=== PATIENT | male | born 1930 | race Caucasian/White ===

== ENCOUNTER → 2017-01-09 | Outpatient (CLI) | payer OTHER ==
[~2017-01-09] VITALS: Ht 177.8 cm; Wt 65.8 kg
[~2017-01-09] MED LIST: ASPIR 8181 MG PO; CARTIA XT120 M1 PO; COLACE100 MG PO; COUMADIN 2 MG TA2 M1 PO; DOXYCYCLINE 10100 MG PO; ELIQUIS5 MG; ELIQUIS5 MG PO; FLOMAX0.4 MG PO; FLOVENT HFA 2220 MCG INH; HYDROCODONE-AP1 EAC6 PO; LEVAQUIN 500 M500 M4 PO; MUCINEX TA600 MG/TA2 PO; NYSTATIN 1100000 U/M PO; OMEPRAZOLE20 M1 PO; PACERONE 200 M200 M1 PO; PRILOSEC20 MG PO; PROBIOTIC1 EAC1 PO; PROTONIX 20 MG20 M1 PO; PROTONIX40 M1 PO; SINGULAIR 10 MG10 M1 PO; TOPROL XL25 MG PO; XANAX 0.5 MG0.5 MG PO; XARELTO10 M1 PO; ZIOPTAN 0.00151 EACH OPHTHALMIC; ZOCOR20 MG PO; ZOFRAN ODT4 MG PO; ZYRTEC10 MG PO
--- NOTE | ~2017-01-09 | S ---
[facility] [place] [address] SURGICAL PATH RPT PROCEDURE Name: YANIRA CAPPS [facility] [id number] Admission: 01/09/17 Date of : 30 Discharge: Report #: [id number] Path Case #: [id number] PATHOLOGY REPORT COLLECTION DATE: 01/09/2017 RECEIVED DATE: 01/09/2017 SUBMITTING PHYS: Dr. Eric Uribe OTHER PHYS: SPECIMEN(S) RECEIVED: A.Distal esophagus * * * * * * * * * * * * FINAL DIAGNOSIS: Gastroesophageal mucosa, distal esophagus, endoscopic biopsy: - Squamous mucosa with mild esophagitis. - Gastric cardia-type mucosa with mild chronic inflammation. - Negative for intestinal metaplasia or dysplasia. COMMENT: Co-review: Dr. Savannah Zamora (IUV:mgr; 01/12/2017) PATHOLOGIST: Shasta Toscano M.D. REPORT ELECTRONICALLY SIGNED BY: Shasta Toscano M.D. DATE/TIME: 01/12/2017 17:30 * * * * * * * * * * * * GROSS PATHOLOGY: Received in formalin labeled "Yanira Capps, biopsy of distal esophagus," are five segments of carrillo soft tissue measuring 1.0 x 0.9 x 0.1 cm in aggregate dimensions and ranging from 0.2 to 0.6 cm in maximum dimension. The specimen is submitted entirely in cassette A1. (CAA; 01/10/2017) CLINICAL HISTORY: History of Martínez's esophagus, Martínez's, small hiatal hernia, R/O dysplasia INITIAL CPT CODE(S): A; 10421 Professional services performed by [facility] at [facility] [address], [place] [address] [facility] [address] [place] [address] SURGICAL PATH RPT PROCEDURE Name: YANIRA CAPPS Room #: REG RICARDO Anderson#: [id number] Admission: 01/09/17 Date of : 30 Discharge: Report #: [id number] Path Case #: [id number] [facility] at [address] [place] [address], [place] [address]. [facility] [address] [place] [address] PHONE: [phone] DIRECTOR: Martin Lindquist M.D. * * * END OF REPORT * * *
--- NOTE | ~2017-01-09 | P ---
[facility] [place] [address] PROCEDURE REPORT Name: YANIRA POZO Aydee Room #: REG [facility]#: [id number] Admission: 01/09/17 Attend Phys: Eric Uribe MD Discharge: Date of : 30 Report #: [id number] THIS REPORT FOR: //name// CC: Eric Burnett MD BRIEF HISTORY: The patient is an 86-year-old male with a history of Martínez's esophagus for surveillance examination. PREOPERATIVE DIAGNOSIS: Martínez's esophagus. POSTOPERATIVE DIAGNOSES: 1. Short segment Martínez esophagus. 2. Small hiatus hernia. MEDICATIONS: Deep sedation with propofol per anesthesia. SPECIMEN: Biopsies of GE junction for Martínez. ESTIMATED BLOOD LOSS: 3 mL. PROCEDURE: EGD with biopsy. FINDINGS: Prior to propofol sedation, the procedure of upper endoscopy and biopsy discussed with the patient as well as potential risks and its complications. He indicates he understands and desires to proceed. DESCRIPTION OF PROCEDURE: With the patient in left lateral decubitus position, the Hoodsi video endoscope was inserted in the cervical esophagus under direct vision without difficulty. Examination of this organ through its entire length revealed normal esophageal mucosa down to the squamocolumnar junction. Squamocolumnar junction was identified and noted to be irregular and essentially there was a broad tongue of Martínez type mucosa. The mucosa was flat without ulcerations or mass lesions. The length of Martínez was no more than 2 cm and the irregular squamocolumnar junction involved less than one-third of the esophagus. In addition, intermittently, small hiatus hernia was seen. The mucosa within the hernia was within normal limits. Scope was advanced in the stomach, was examined on end view as well as retroflexed views. There was some erythema in the antrum, but no ulcers or erosions were seen. No retained solids or liquids are seen in the stomach. Upon retroflexion, the small hiatus hernia was seen. No other abnormalities were identified. The pylorus, duodenal bulb, and postoperative sweep were inspected and noted to be within normal limits. At that point, the scope was slowly withdrawn and careful circumferential views confirmed the above findings and the patient tolerated procedure well. As we withdrew the scope, multiple biopsies were obtained of Martínez mucosa. [address] [address] PROCEDURE REPORT Name: RONDARoblesYANIRA Aydee Room #: REG [facility] Justin#: [id number] Admission: 01/09/17 Attend Phys: Eric Uribe MD Discharge: Date of : 30 Report #: [id number] CONDITION OF THE PATIENT UPON DISCHARGE: Following procedure, the patient drowsy, aroused, conversant and will be discharged home when fully ambulatory. INSTRUCTIONS TO THE PATIENT AND FAMILY AT THE TIME OF DISCHARGE: Endoscopically he has a stable pattern of Martínez esophagus and the distal esophagus. We will follow up on pathology and make further recommendations. If there is no evidence, we will make followup recommendations. At this point in time, unless he has highly dysplastic mucosa, I do not see the need for further intervention or surveillance. He is to continue proton pump inhibitor and suggest omeprazole 20 mg once daily. I doubt that he needs twice daily omeprazole. He will return to the care of Dr. Fred Burnett and return to see me as needed. <ELECTRONICALLY SIGNED> By: Eric Uribe MD 01/10/17 0658 [id number] Eric Uribe MD /nt
== END | disposition home or self-care (01) ==
LOC: GI 08:04 → NUC 13:58
DX: K22.719 Barrett's esophagus with dysplasia, unspecified (principal); K21.9 Gastro-esophageal reflux disease without esophagitis; K44.9 Diaphragmatic hernia without obstruction or gangrene; I10 Essential (primary) hypertension; I48.91 Unspecified atrial fibrillation; E78.5 Hyperlipidemia, unspecified; E78.00 Pure hypercholesterolemia, unspecified; N40.0 Benign prostatic hyperplasia without lower urinary tract symptoms; Z85.46 Personal history of malignant neoplasm of prostate; Z98.41 Cataract extraction status, right eye; Z98.42 Cataract extraction status, left eye; Z96.1 Presence of intraocular lens; Z98.890 Other specified postprocedural states; Z79.82 Long term (current) use of aspirin; Z79.01 Long term (current) use of anticoagulants; Z79.899 Other long term (current) drug therapy
CPT/HCPCS: 62110; 62900

== ENCOUNTER 2017-11-02 14:57 | Emergency (ER) | payer OTHER ==
[~2017-11-02] VITALS: Ht 177.8 cm; Wt 65.8 kg
[2017-11-02 15:36] LABS: HEMATOCRIT 39.2 % (42.0-52.0); HEMOGLOBIN 13.1 gm/dL (14.0-18.0); MCH 33.1 pg (26.0-34.0); MCHC 33.5 g/dL (28.0-37.0); MCV 98.6 fL (80.0-100.0); RBC 3.98 mil/uL (4.50-6.00); RDW 13.4 % (10.5-14.5); WBC 4.2 thou/uL (4.0-11.0)
[2017-11-02 15:50] LABS: INR 2.4; PROTIME 23.8 Seconds (9.3-11.4)
[2017-11-02] MEDS ORDERED: KEFLEX500 M1 PO (17:55)
== END 2017-11-02 18:13 | disposition home or self-care (01) ==
LOC: ER 14:57
PROVIDERS: Emergency Medicine
DX: R04.0 Epistaxis (principal); E78.00 Pure hypercholesterolemia, unspecified; K21.9 Gastro-esophageal reflux disease without esophagitis; N40.0 Benign prostatic hyperplasia without lower urinary tract symptoms; I48.91 Unspecified atrial fibrillation; Z90.89 Acquired absence of other organs; Z85.46 Personal history of malignant neoplasm of prostate

== ENCOUNTER → 2019-04-27 | Outpatient (CLI) | payer OTHER ==
[~2019-04-27] MED LIST changes: +KEFLEX500 M1 PO
== END ==
LOC: RAD 11:58
DX: I51.7 Cardiomegaly (principal)

== ENCOUNTER → 2019-06-03 | Outpatient (CLI) | payer OTHER ==
[~2019-06-03] VITALS: Ht 180.3 cm; Wt 63.5 kg
[~2019-06-03] MED LIST changes: +COUMADIN 4 MG TA4 M1 PO; +MULTIVITAMINS1 EAC7 PO; +TRUSOPT OCUMETE10 ML OPHTHALMIC
[2019-06-03 08:36] LABS: INR 1.2; PROTIME 11.9 Seconds (9.3-11.4)
--- NOTE | 2019-06-04 11:04 | P ---
[facility] [place] [place] [address] PROCEDURE REPORT Name: YANIRA POZO Room #: REG [facility]#: [id number] Admission: 06/03/19 Attend Phys: Eric Uribe MD Discharge: Date of : 30 Report #: [id number] THIS REPORT FOR: //name// CC: Eric Burnett MD OUTPATIENT COLONOSCOPY REPORT BRIEF HISTORY: The patient is an 88-year-old male with a history of colon polyps and recent findings of Hemoccult-positive stools. PREOPERATIVE DIAGNOSIS: Hemoccult-positive stools. POSTOPERATIVE DIAGNOSES: 1. Moderate sigmoid diverticulosis coli. 2. Internal hemorrhoids. MEDICATIONS: Deep sedation with propofol per anesthesia. SPECIMEN: None. ESTIMATED BLOOD LOSS: None. PROCEDURE: Colonoscopy to cecum and terminal ileum. FINDINGS: Prior to propofol sedation, procedure of colonoscopy discussed with the patient as well as potential risks, benefits, and complications. He indicates he understands and desires to proceed. DESCRIPTION OF PROCEDURE: With the patient in left lateral decubitus position, digital examination was completed, which revealed no abnormalities. Subsequently, the Olympus video colonoscope was introduced in the rectum, advanced under direct vision to the cecum. Done with minimal difficulty. Cecum was identified by the ileocecal valve and the appendiceal orifice. I was able to visualize the distal segment of the terminal ileum, which was inspected and noted to be unremarkable. At that point, the scope was slowly withdrawn and careful circumferential views were obtained. There were some limitations of the prep in the proximal colon. However, with irrigation and suctioning, we were able to overall obtain a reasonably good prep. The mucosa within normal limits, normal vascular pattern, normal light reflex. No mucosal abnormalities were seen. Specifically, there was no evidence of bleeding lesions or AVMs were not seen. No neoplastic lesions were seen. However, in the sigmoid colon, there was moderate diverticular disease without endoscopic evidence of diverticulitis. Scope was withdrawn in the rectum, no abnormalities were seen. However, upon retroflexion, [id number] internal hemorrhoids were seen. There is no evidence of bleeding. Scope was withdrawn. The patient tolerated the procedure [facility] [address] [place] [address] PROCEDURE REPORT Name: SÁNCHEZYANIRA Aydee Room #: REG [facility] Justin#: [id number] Admission: 06/03/19 Attend Phys: Eric Uribe MD Discharge: Date of : 30 Report #: [id number] well. CONDITION OF THE PATIENT UPON DISCHARGE: Following procedure, the patient drowsy, aroused, conversant and will be discharged home when fully ambulatory. INSTRUCTIONS TO THE PATIENT AND FAMILY AT THE TIME OF DISCHARGE: No bleeding lesions identified on today's exam. It is possible the Hemoccult-positive stools could account for the hemorrhoids. Please see endoscopy report for additional details. If there is further concern about blood loss, small bowel capsule study at a later date may be a consideration. It is noted he did have one several years ago, which was nondiagnostic. We will have him resume his warfarin. He will return to care of Dr. Fred Burnett and return to see me as needed. Also, at this point in life, there is not likely to be much benefit from continued routine colonoscopy for screening purposes. <ELECTRONICALLY SIGNED> By: Eric Uribe MD 06/04/19 1104 [id number] 0926 Eric Uribe MD /nt
--- NOTE | 2019-06-04 11:04 | P ---
[facility] [place] [place] [address] PROCEDURE REPORT Name: YANIRA POZO Room #: REG [facility]#: [id number] Admission: 06/03/19 Attend Phys: Eric Uribe MD Discharge: Date of : 30 Report #: [id number] THIS REPORT FOR: //name// CC: Eric Burnett MD OUTPATIENT UPPER ENDOSCOPY BRIEF HISTORY: The patient is an 88-year-old male with a history of atrial fibrillation, on chronic Coumadin therapy, who was recently found to have Hemoccult positive stools. Last GI workup was about 4 years ago. PREOPERATIVE DIAGNOSIS: Hemoccult-positive stools. POSTOPERATIVE DIAGNOSES: 1. Diffuse gastritis. 2. Small hiatus hernia. 3. Short segment Martínez esophagus, broad tongue. 4. Exudative esophagitis consistent with candidiasis esophagitis. SPECIMENS: 1. Brushing of esophagus, rule out Negar. 2. Biopsies of Martínez's esophagus. ESTIMATED BLOOD LOSS: 3 mL. PROCEDURE: EGD with biopsy and brushing of esophagus. FINDINGS: Prior to propofol sedation, procedure of upper endoscopy was discussed with the patient as well as potential risks and its complications. He indicates he understands and desires to proceed. DESCRIPTION OF PROCEDURE: With the patient in left lateral decubitus position, the Olympus video endoscope was inserted in the cervical esophagus under direct vision without difficulty. Examination of this organ throughout its entire length revealed intact mucosa throughout the esophagus. No ulcers or erosions were seen. No bleeding lesions were seen. However, in the mid and distal esophagus, there was exudative process, most consistent with Negar esophagitis. Brushings were obtained. Examination of the distal esophagus revealed a broad tongue of Martínez's type mucosa, which has been seen previously. It was flat and it was examined with white light and narrow banded imaging. Random biopsies were obtained. The scope was advanced and a small hiatus hernia was encountered. The mucosa and hernia was unremarkable. Scope was advanced in the stomach, was examined on end view as well as retroflexed views. There was a pattern of diffuse gastritis that has been previously noted. Biopsies were not obtained today. There was no evidence of ulcers or bleeding [facility] [address] [place] [address] PROCEDURE REPORT Name: RONDARoblesYANIRA Aydee Room #: REG [facility].#: [id number] Admission: 06/03/19 Attend Phys: Eric Uribe MD Discharge: Date of : 30 Report #: [id number] lesions. Upon retroflexion, the hiatus hernia was seen. No mass lesions were seen. The pylorus, duodenal bulb and postbulbar duodenal sweep were inspected and noted to be unremarkable. At that point, the scope was slowly withdrawn and careful circumferential views confirmed the above findings. The patient tolerated the procedure well. CONDITION OF THE PATIENT UPON DISCHARGE: Following procedure, the patient drowsy and prepared for colonoscopy. INSTRUCTIONS TO THE PATIENT AND FAMILY AT THE TIME OF DISCHARGE: We will follow up on biopsies and brushing. He will likely need treatment for Negar esophagitis. A bleeding lesion was not seen. Proceed with colonoscopy at this time. Also, we will follow up on biopsies of the Martínez's mucosa. At this point in time, there is likely little benefit from routine surveillance of Martínez's esophagus. However, he should control his reflux disease. If there is evidence of dysplasia, we will discuss further with the patient. <ELECTRONICALLY SIGNED> By: Eric Uribe MD 06/04/19 1104 0838 0854 Eric Uribe MD /nt
--- NOTE | 2019-06-06 17:07 | PATH ---
[facility] [address] [place] [address] PATHOLOGY RPT PROCEDURE Name: BRIANNAJAQUELINEYANIRA Aydee Room #: REG RICARDO Anderson#: [id number] Admission: 06/03/19 Date of : 30 Discharge: Report #: [id number] Path Case #: [id number] [facility] Accession Number: [id number] . 01 Material submitted: . esophagus - BIOPSY OF DISTAL ESOPHAGUS - WHYTE TO R/O DYSPLASIA. Modifiers: distal . 01 Clinical history: . Pre-OP DX: Hemoccult positive stools, Whyte's esophagus Post-OP DX: Diverticulosis and hemorrhoids . 02 Diagnosis: Gastroesophageal mucosa, distal esophagus, endoscopic biopsy: - Detached squamous epithelial fragments associated with numerous fungal hyphae. - Intact gastroesophageal mucosa fragments showing mild esophagitis. - Negative for intestinal metaplasia or dysplasia. LBQ 06/06/2019 1259 Local . 02 Comment: The detached squamous epithelial fragments are associated with numerous fungal hyphal elements as well as fibrinopurulent debris. The intact fragments are devoid of any acute inflammatory changes. Findings may be suggestive of Negar esophagitis. Please correlate clinically and follow-up as indicated. (IUV/db; 06/06/2019) . 02 Electronically signed: . Shasta Toscano MD, Pathologist NPI- [id number] . 01 Gross description: . Received in formalin labeled "Yanira Capps BX of distal esophagus to rule out dysplasia," are 5 segments of carrillo soft tissue measuring 1.0 x 0.6 x 0.2 cm in aggregate dimensions and ranging from 0.1 to 0.5 cm in maximum dimension. The specimen is submitted entirely in cassette A1. Due to the minute nature of some of the specimens, they may not survive processing. (TSD; 06/03/2019) TOB/TOB 06/03/2019 1928 Local . 02 Pathologist provided ICD-10: K20.9 . 02 CPT . 826721 Specimen Comment: Report sent to / [place] [address] PATHOLOGY RPT PROCEDURE Name: YANIRA CAPPS Room #: REG [facility] Justin#: [id number] Admission: 06/03/19 Date of : 30 Discharge: Report #: [id number] Path Case #: [id number] Performed at: 01 [facility] Iliana Oakley [address], [place], [place] [id number] MD Adam Lea MD Phone: [phone] Performed at: [address] [id number] MD Shasta Toscano MD Phone: [phone]
== END | disposition home or self-care (01) ==
LOC: GI 07:29
PROVIDERS: Specialist
DX: R19.5 Other fecal abnormalities (principal); Z86.010 Personal history of colon polyps; K57.30 Diverticulosis of large intestine without perforation or abscess without bleeding; K64.8 Other hemorrhoids; K29.70 Gastritis, unspecified, without bleeding; K20.9 Esophagitis, unspecified; K22.8 Other specified diseases of esophagus; K44.9 Diaphragmatic hernia without obstruction or gangrene; I48.91 Unspecified atrial fibrillation; Z98.890 Other specified postprocedural states; Z79.899 Other long term (current) drug therapy; Z79.01 Long term (current) use of anticoagulants
CPT/HCPCS: 62110; 62900

== ENCOUNTER → 2019-06-14 | Outpatient (CLI) | payer OTHER | LOC: SJCVC 10:30 | DX: Z51.81 Encounter for therapeutic drug level monitoring (principal); I48.91 Unspecified atrial fibrillation; Z79.01 Long term (current) use of anticoagulants ==

== ENCOUNTER → 2019-06-15 | Outpatient (CLI) | payer OTHER | LOC: SJCVC 13:00 | DX: I48.0 Paroxysmal atrial fibrillation (principal); R94.31 Abnormal electrocardiogram [ECG] [EKG]; I42.8 Other cardiomyopathies; I10 Essential (primary) hypertension; E78.00 Pure hypercholesterolemia, unspecified; Z79.01 Long term (current) use of anticoagulants; Z79.899 Other long term (current) drug therapy; Z82.49 Family history of ischemic heart disease and other diseases of the circulatory system ==

== ENCOUNTER → 2019-06-21 | Outpatient (CLI) | payer OTHER | LOC: SJCVC 10:23 | DX: Z51.81 Encounter for therapeutic drug level monitoring (principal); I48.91 Unspecified atrial fibrillation; K21.9 Gastro-esophageal reflux disease without esophagitis; J44.9 Chronic obstructive pulmonary disease, unspecified; I10 Essential (primary) hypertension; E78.00 Pure hypercholesterolemia, unspecified; Z79.01 Long term (current) use of anticoagulants; Z79.899 Other long term (current) drug therapy ==

== ENCOUNTER → 2019-07-05 | Outpatient (CLI) | payer OTHER | LOC: SJCVC 10:24 | DX: Z51.81 Encounter for therapeutic drug level monitoring (principal); I48.91 Unspecified atrial fibrillation; I42.9 Cardiomyopathy, unspecified; I10 Essential (primary) hypertension; K21.9 Gastro-esophageal reflux disease without esophagitis; J44.9 Chronic obstructive pulmonary disease, unspecified; E78.00 Pure hypercholesterolemia, unspecified; Z68.20 Body mass index [BMI] 20.0-20.9, adult; Z79.01 Long term (current) use of anticoagulants ==

== ENCOUNTER → 2019-08-02 | Outpatient (CLI) | payer OTHER | LOC: SJCVC 10:39 | DX: Z51.81 Encounter for therapeutic drug level monitoring (principal); I48.91 Unspecified atrial fibrillation; K21.9 Gastro-esophageal reflux disease without esophagitis; J44.9 Chronic obstructive pulmonary disease, unspecified; I25.5 Ischemic cardiomyopathy; I10 Essential (primary) hypertension; E78.00 Pure hypercholesterolemia, unspecified; Z68.20 Body mass index [BMI] 20.0-20.9, adult; Z79.01 Long term (current) use of anticoagulants ==

== ENCOUNTER → 2019-08-30 | Outpatient (CLI) | payer OTHER | LOC: SJCVC 10:30 | PROVIDERS: ATTEND Internal Medicine Cardiovascular Disease | DX: Z51.81 Encounter for therapeutic drug level monitoring (principal); I48.91 Unspecified atrial fibrillation; K21.9 Gastro-esophageal reflux disease without esophagitis; J44.9 Chronic obstructive pulmonary disease, unspecified; I25.5 Ischemic cardiomyopathy; I10 Essential (primary) hypertension; E78.00 Pure hypercholesterolemia, unspecified; Z68.20 Body mass index [BMI] 20.0-20.9, adult; Z79.01 Long term (current) use of anticoagulants ==

== ENCOUNTER → 2019-09-27 | Outpatient (CLI) | payer OTHER | LOC: SJCVC 10:28 | DX: Z51.81 Encounter for therapeutic drug level monitoring (principal); Z79.01 Long term (current) use of anticoagulants ==

== ENCOUNTER → 2019-10-25 | Outpatient (CLI) | payer OTHER | LOC: SJCVC 10:23 | DX: Z51.81 Encounter for therapeutic drug level monitoring (principal); Z79.01 Long term (current) use of anticoagulants ==

== ENCOUNTER → 2019-11-22 | Outpatient (CLI) | payer OTHER | LOC: SJCVC 10:24 | PROVIDERS: ATTEND Internal Medicine Cardiovascular Disease | DX: Z51.81 Encounter for therapeutic drug level monitoring (principal); I48.91 Unspecified atrial fibrillation; E78.00 Pure hypercholesterolemia, unspecified; K21.9 Gastro-esophageal reflux disease without esophagitis; J44.0 Chronic obstructive pulmonary disease with (acute) lower respiratory infection; I10 Essential (primary) hypertension; Z79.01 Long term (current) use of anticoagulants; Z79.899 Other long term (current) drug therapy ==

== ENCOUNTER → 2019-11-29 | Outpatient (CLI) | payer OTHER | LOC: SJCVC 10:30 | PROVIDERS: ATTEND Internal Medicine Cardiovascular Disease | DX: Z51.81 Encounter for therapeutic drug level monitoring (principal); Z79.01 Long term (current) use of anticoagulants ==

== ENCOUNTER → 2019-12-06 | Outpatient (CLI) | payer OTHER | LOC: SJCVC 10:12 | PROVIDERS: ATTEND Internal Medicine Cardiovascular Disease | DX: Z51.81 Encounter for therapeutic drug level monitoring (principal); I10 Essential (primary) hypertension; I48.91 Unspecified atrial fibrillation; J44.9 Chronic obstructive pulmonary disease, unspecified; E78.00 Pure hypercholesterolemia, unspecified; K21.9 Gastro-esophageal reflux disease without esophagitis; Z79.01 Long term (current) use of anticoagulants ==

== ENCOUNTER → 2020-06-15 | Outpatient (CLI) | payer OTHER | LOC: SJCVCIMAG 08:40 | PROVIDERS: ATTEND Internal Medicine Cardiovascular Disease | DX: I48.91 Unspecified atrial fibrillation (principal); I49.3 Ventricular premature depolarization; I42.8 Other cardiomyopathies; I10 Essential (primary) hypertension; E78.00 Pure hypercholesterolemia, unspecified; K21.9 Gastro-esophageal reflux disease without esophagitis; I42.9 Cardiomyopathy, unspecified; Z79.899 Other long term (current) drug therapy; Z82.49 Family history of ischemic heart disease and other diseases of the circulatory system ==